=== PATIENT | female | born 1990 | race Hispanic/Latino ===

== ENCOUNTER 2018-09-30 18:00 | Inpatient (IN) | payer OTHER, SELFPAY ==
[2018-09-30 20:34] VITALS: BMI 24.1
--- NOTE | 2018-09-30 20:49 | PDOC.LDHP ---
Labor and Delivery H&P Chief complaint: contractions, scheduled induction HPI: 27yo at 39.3 by LMP c/w 15.3 wk sono here for elective IOL. complicated by IUGR. Endorses FM, denies LOF/VB/VD. Denies CTX but endorses slight pelvic pressure. No other concerns otherwise Current gestational age (weeks): 39 (39.3) Due date: 10/04/18 Dating criteria: last menstrual period, first trimester ultrasound Grav: 4 Para: 2 (1112) OB History Details: 1. 36 wks, 2. 38 wks, 3. SAB Current complications: none Abnormal US findings: Yes (IUGR) Current medications: pre-angelica vitamins, iron Previous surgical history: none Allergies/Adverse Reactions: Allergies Allergy/AdvReac Type Severity Reaction Status Date / Time No Known Allergies Allergy Verified 09/30/18 20:29 Social history: none - Physical Exam Vital signs reviewed and normal: yes General: NAD Heart: RRR Lungs: CTAB Abdomen: NTTP Extremeties: no edema FHT: category 1 - Vaginal Exam cm dilated: 3 Effacement: 50% Station: -1 - OB Labs Blood type: A RH: positive Antibody Screen: negative HIV: negative RPR: negative HEPSAg: negative 1 hour GCT: negative GBS: negative Rubella: immune - Assessment L&D Assessment: elective induction at term - Plan Plan: admit to L&D, labor augmentation if indicated -: #sIUP, term, elective IOL -FHT: Cat I, uterine irritability -SVE: 3/50/-1, Taver[place] 7 -Position: Vertex -Will start pitocin -Recheck in 2 hours -desires epidrual #elevated BPs -130s/80s, with headache -1g tylenol now -CBC/CMP urine pr/cr #IUGR -s<d in prior ultrasound -no recent ultrasound #anemia of -has been taking iron #hx of at 36 weeks -received weekly brittany (hydroxyprogesterone) during this Discussed with Dr. Shanti Patel - Attending - Attending Attestation Date/Time: 10/01/182120 I personally evaluated the patient and discussed the management with Dr. Frankel I agree with the History, Examination, Assessment and Plan documented above with any addition or exceptions noted below. Medically indicated induction of labor for IUGR. Pt having weekly testing with UA dopplers that have been reassuring. Start induction with pitocin. GBS negative. Anticipate
[2018-09-30] MEDS ORDERED: Promethazine HCl 25 MG/ML VIAL IM PRN ×2 (21:25→23:39)
[2018-09-30] MEDS ORDERED: Ondansetron PF 4 MG/2 ML Vial IVP PRN ×2 (21:25→23:39)
[2018-09-30] MEDS ORDERED: Lidocaine 1% (PF) 30 ML VIAL SC PRN (21:25)
[2018-09-30] MEDS ORDERED: NS / Oxytocin 40 units/1000ml 1,000 ML IV PRN (21:25)
[2018-09-30] MEDS ORDERED: hydrALAZINE 20 MG/ML VIAL SLOW IVP PRN (21:25)
[2018-09-30] MEDS ORDERED: NS w/ Oxytocin 10 units 500 ML IV SCH (21:30)
[2018-09-30] MEDS ORDERED: Lactated Ringer's 1,000 ML IV SCH (21:30)
[2018-09-30] MEDS ORDERED: Acetaminophen 500 MG TAB PO SCH (22:00)
[2018-09-30 22:27] LABS: Hemoglobin 11.3 g/dL (12.0-16.0); Mean Corpuscular HGB CONC 32.9 g/dL (32.0-36.0); Mean Corpuscular Volume 91.2 fL (78.0-98.0); Mean Platelet Volume 8.6 fL (7.4-10.4); Platelet Count 242 thou/uL (130-400); RBC Distribution Width 12.9 % (11.5-14.5); Red Blood Cell (RBC) Count 3.78 mill/uL (4.20-5.40); White Blood Cell (WBC) Count 10.2 thou/uL (4.8-10.8)
[2018-09-30] MEDS ORDERED: Magnesium Sulfate 20 gm/500 ml 20 GM/500 ML BAG ONE (22:58)
[2018-09-30 23:09] LABS: ALT (SGPT) 14 U/L (8-55); AST (SGOT) 16 U/L (5-34); Albumin 3.6 g/dL (3.5-5.0); Alkaline Phosphatase 177 U/L (40-150); Anion Gap 15 mmol/L (10-20); BUN (Urea Nitrogen) 12 mg/dL (7.0-18.7); Bilirubin, Total 0.3 mg/dL (0.2-1.2); Calc. Creatinine Clearance 118 mL/min (70-130); Calcium 8.9 mg/dL (7.8-10.44); Carbon Dioxide 20 mmol/L (22-29); Chloride 102 mmol/L (98-107); Estimated GFR-MDRD Greater than 90; Globulin 3.1 g/dL (2.4-3.5); Glucose 78 mg/dL (70-105); Potassium 4.3 mmol/L (3.5-5.1); Protein, Total 6.7 g/dL (6.0-8.3); Sodium 133 mmol/L (136-145)
[2018-09-30] MEDS ORDERED: Fentanyl 4 mcg/Bup 0.1% Cadd 100 ML ONE (23:13)
[2018-09-30] MEDS: Magnesium Sulfate 20 gm/500 ml 20 GM/500 ML BAG IVPB SCH (23:20)
[2018-09-30] MEDS ORDERED: Calcium Gluc 4.6 MEQ/10 ML (100 MG/ML) SLOW IVP PRN (23:22)
[2018-09-30 23:24] LABS: Syphilis Antibody Nonreactive (Nonreactive); Syphilis Antibody Index 0.06 S/CO (<1.00 Non-Reactive)
--- NOTE | 2018-09-30 23:24 | PDOC.LDPN ---
Labor & Delivery Progress Note - Subjective Subjective: comfortable, vaginal pressure - Objective Abnormal vital signs: elevated BPs, two in severe ranges General: NAD, resting SVE: 4/50/-1 Dilation: 4 Effacement: 50% Station: -1 FHT: category 1 (150/mod-marked/accels), variability present Rowley contractions every: uterine irritability Plan: continue plan of care, labor augmentation -: #sIUP, term, elective IOL -FHT: Cat I, uterine irritability -SVE: 50/-1 -Position: Vertex -pit at 2 -Recheck in 2 hours -desires epidural #preeclampsia -two severe range BPs 160s/100s, headache still present with tylenol (somewhat improved) -gave hydralazine, continue IV PRNs -discussed starting magnesium for seizure prophylaxis, explained AE, R&B, patient agrees #IUGR -s<d in prior ultrasound -no recent ultrasound #anemia of -has been taking iron #hx of at 36 weeks -received weekly brittany (hydroxyprogesterone) during this Discussed with Dr. Moser
[2018-09-30] MEDS ORDERED: Labetalol HCl 100 MG/20 ML VIAL SLOW IVP PRN (23:29)
[2018-09-30] MEDS ORDERED: Magnesium Sulfate 20 GM/WATER 500 ML BAG IVPB SCH (23:30)
[2018-09-30] MEDS ORDERED: diphenhydrAMINE 50 MG/ML VIAL IVP PRN (23:39)
[2018-09-30] MEDS ORDERED: Acetaminophen 325 MG TAB PO PRN (23:39)
[2018-09-30] MEDS ORDERED: Naloxone HCl 0.4 mg/ml Vial IVP PRN ×2 (23:39)
[2018-09-30] MEDS ORDERED: ePHEDrine/0.9% NaCl/PF SYRINGE 50 mg/10 ml SLOW IVP PRN (23:39)
[2018-09-30] MEDS ORDERED: Lactated Ringer's 500 ML IV PRN (23:39)
[2018-09-30] MEDS ORDERED: Communication Order-Pharmacy FS SCH (23:45)
[2018-09-30] MEDS ORDERED: Fentanyl 4 mcg/Bupivacaine 0.1% Cassette 100 ML EPIDURAL SCH (23:45)
[2018-10-01 00:35] LABS: HBSAg Index 0.23 S/CO (0-0.99); Hep B Surf Ag Non-Reactive S/CO (NonReactive)
--- NOTE | 2018-10-01 06:10 | PDOC.EVN ---
Event Note - Event Note Event Note: Magnesium check @ 0430 Denies VOGEL, SOB, chest pain, vision changes. Comfortable. VS: No severe range BPs, two isolated at 143mmHg and another at 145mmHg UO: >30cc/hr PE: RRR, CTAB, no edema, reflexes 2+ Fluids: LR @ 75 Magnesium: Mg at 2g/hr Continue plan of care Recheck in 4 hours
--- NOTE | 2018-10-01 06:39 | PDOC.EVN ---
Event Note - Event Note Event Note: Vaginal Delivery Dictation Guideline Delivering Physician: Lavern Vincent Attending: Dr. Moser Procedure: Spontaneous Vaginal Delivery Anesthesia: epidural EBL: 200 ml Pre-op Diagnosis: 1. Term intrauterine in labor 2. Hx of IUGR Post-op Diagnosis: 1. Term intrauterine , delivered 2. same as above Indications: A 27 y/o female presents for elective term induction Delivery Note: This is 27 yo F @ 39.4 wks who delivered a viable M infant on 10/01 at 0254. Uneventful antepartum course with rapid cervical change a vigorous M was delivered over an intact perineum in the occipitoanterior position. Anterior shoulder and then remainder of the body delivered. No nuchal cord. The head was held down and mouth and nares were bulb suctioned. Cord clamped after delayed cord clamping and cut and cord blood collected. Placenta delivered intact with a 3 vessel cord noted. Fundal massage was performed and the fundus was firm. The cervix and vagina were inspected and found to be free of lacerations. Infant went to nursery in good condition for routine care. Apgars were 9/9 at 1 & 5 minutes, respectively. Patient tolerated delivery well and will transition to LDICU to continue to receive magnesium. Addendum - Attending - Attending Attestation Date/Time: 10/01/182130 I was present for and assisted in the entire uncomplicated performed by Vivi Puckett and Jostin. I agree with above documentation.
--- NOTE | 2018-10-01 09:13 | PDOC.EVN ---
Event Note - Event Note Event Note: Magnesium check @ 0830 Denies VOGEL, SOB, chest pain, vision changes. Comfortable. VS: No severe range BPs, highest recorded BP 158/80 UO: >30cc/hr PE: RRR, CTAB, no edema, reflexes 2+ Fluids: LR @ 75 Magnesium: Mg at 2g/hr Continue plan of care Recheck in 4 hours Addendum - Attending - Attending Attestation Date/Time: 10/01/18 1370 I personally evaluated the patient and discussed the management with Dr. Montenegro. I agree with the History, Examination, Assessment and Plan documented above with any addition or exceptions noted below.
[2018-10-01 09:25] LABS: Creatinine, Urine Less than 20.00 mg/dL (47-110); Protein, Urine Random Quant Less than 10 mg/dL (1-14)
[2018-10-01] MEDS ORDERED: diphenhydrAMINE 25 MG CAP PO PRN (11:31)
[2018-10-01] MEDS ORDERED: Metoclopramide HCl 10 MG TAB PO PRN (11:31)
[2018-10-01] MEDS ORDERED: Ibuprofen 200 MG TAB PO PRN (11:31)
[2018-10-01] MEDS ORDERED: HYDROcodone/Acetaminophen 5/325 mg Tablet PO SCH (12:15)
--- NOTE | 2018-10-01 12:44 | PDOC.EVN ---
Event Note - Event Note Event Note: Magnesium check @ 1230 Reports headache and vaginal pain/soreness. denies SOB, chest pain, vision changes. Comfortable. VS: No severe range BPs, highest recorded BP 158/80 UO: >30cc/hr PE: RRR, CTAB, no edema, reflexes 2+ Fluids: LR @ 75 Magnesium: Mg at 2g/hr Continue plan of care Recheck in 4 hours
[2018-10-01] MEDS ORDERED: Ibuprofen 800 MG TAB PO PRN (13:19)
--- NOTE | 2018-10-01 15:51 | PDOC.EVN ---
Event Note - Event Note Event Note: Magnesium check @ 1700 Denies headache, SOB, chest pain, vision changes. Comfortable. VS: No severe range BPs, highest recorded BP 158/80 UO: >30cc/hr PE: RRR, CTAB, no edema, reflexes 2+ Fluids: LR @ 75 Magnesium: Mg at 2g/hr Continue plan of care Recheck in 4 hours
--- NOTE | 2018-10-01 18:28 | PDOC.EVN ---
Event Note - Event Note Event Note: Magnesium check @ 1900 Denies headache, SOB, chest pain, vision changes. Comfortable. VS: No severe range BPs, highest recorded BP 158/80 this AM UO: >30cc/hr PE: RRR, CTAB, no edema, reflexes 2+ Fluids: LR @ 75 Magnesium: Mg at 2g/hr Continue plan of care Recheck in 4 hours
[2018-10-01] MEDS: Magnesium Sulfate 20 gm/500 ml 20 GM/500 ML BAG IVPB SCH (18:56)
[2018-10-01] MEDS: Ibuprofen 800 MG TAB PO PRN (20:25)
[2018-10-01] MEDS ORDERED: Bisacodyl 10 MG SUPP PR PRN (22:40)
[2018-10-01] MEDS ORDERED: Milk Of Magnesia 30 ML UDCUP PO PRN (22:40)
[2018-10-01] MEDS ORDERED: hydrALAZINE 20 MG/ML VIAL SLOW IVP PRN (22:40)
[2018-10-01] MEDS ORDERED: Docusate Calcium (SURFAK) 240 MG CAP PO SCH (22:45)
[2018-10-02] MEDS: Ibuprofen 800 MG TAB PO PRN ×3 (05:52→21:31)
[2018-10-02] MEDS: Ferrous Sulfate 325 MG TAB PO SCH ×2 (07:55→13:46)
[2018-10-02] MEDS: Docusate Calcium (SURFAK) 240 MG CAP PO SCH ×2 (08:45→21:31)
[2018-10-02] MEDS ORDERED: Adacel (T-DAP) 0.5 ML SYRINGE IM ONE (09:00)
--- NOTE | 2018-10-02 09:38 | PDOC.PP ---
Post Progress Note Post Day #: 1 Subjective: 27 yo ->3 delivered after successful IOL 2/2 IUGR. In the induction precess pt developed severe range BPs and was started on magnesium. Since delivery PT has had good BP control. She denies headache, cp, sob, abd pain, epigastric pain and ruq pain. PO intake tolerated: yes Flatus: yes Ambulation: yes Vital Signs (12 hours) Temp Pulse Resp BP Pulse Ox 10/02/18 07:42 98.6 F 83 20 128/80 98 10/02/18 02:41 98.3 F 92 20 134/82 10/01/18 22:40 97.9 F 90 16 123/73 100 Weight Weight 58.06 kg - Physical Examination General: NAD Cardiovascular: no m/r/g, RRR Respiratory: clear to auscultation bilaterally, non-labored breathing Abdominal: + bowel sounds, no distention, appropriately TTP Neurological: no gross focal deficits Psychiatric: normal affect Result Diagrams: 09/30/18 22:11 09/30/18 22:11 Additional Labs: Post Labs Blood Type A POSITIVE 09/30/18 22:37 Hep Bs Antigen Non-Reactive S/CO (NonReactive) 09/30/18 22:11 (1) Pre-eclampsia, delivered Code(s): O14.94 - UNSPECIFIED PRE-ECLAMPSIA, COMPLICATING CHILDBIRTH Status: Acute - Assessment/Plan 1) Preeclampsia, delivered - pp day 1 - pt doing well with good bp control - will plan to keep pt overnight and continue to monitor pressures - Pain well controlled at this time Addendum - Attending - Attending Attestation Date/Time: 10/02/18 1022 I personally evaluated the patient and discussed the management with Dr. Puckett and team. I agree with the History, Examination, Assessment and Plan documented above with any addition or exceptions noted below.
[2018-10-03] MEDS: Ibuprofen 800 MG TAB PO PRN (05:47)
[2018-10-03] MEDS: Ferrous Sulfate 325 MG TAB PO SCH (07:30)
[2018-10-03] MEDS: Docusate Calcium (SURFAK) 240 MG CAP PO SCH (08:46)
--- NOTE | 2018-10-03 10:31 | PDOC.PP ---
Post Progress Note Post Day #: 2 Subjective: 27 yo ->3 pp day 2. Pt doing well w/o complaints. Pts bp stable. PO intake tolerated: yes Flatus: yes Ambulation: yes Vital Signs (12 hours) Temp Pulse Resp BP Pulse Ox 10/03/18 08:00 97.9 F 74 16 116/73 98 10/03/18 04:31 98.9 F 89 18 122/89 10/03/18 00:27 99.0 F 91 18 133/67 Weight Admit Weight 58.06 kg Weight 58.06 kg - Physical Examination General: NAD Cardiovascular: no m/r/g, RRR Respiratory: clear to auscultation bilaterally, non-labored breathing Neurological: no gross focal deficits Psychiatric: normal affect Result Diagrams: 09/30/18 22:11 09/30/18 22:11 Additional Labs: Post Labs Blood Type A POSITIVE 09/30/18 22:37 Hep Bs Antigen Non-Reactive S/CO (NonReactive) 09/30/18 22:11 (1) Pre-eclampsia, delivered Code(s): O14.94 - UNSPECIFIED PRE-ECLAMPSIA, COMPLICATING CHILDBIRTH Status: Acute - Assessment/Plan 1) Preeclampsia, delivered - pp day 2 BP has been stable - ok for dc to home with one week BP f/u @ [facility] Addendum - Attending - Attending Attestation Date/Time: 10/03/18 1220 I personally evaluated the patient and discussed the management with Dr. Puckett and team. I agree with the History, Examination, Assessment and Plan documented above with any addition or exceptions noted below.
[2018-10-03 12:43] VITALS: BP 131/78; TEMP 98.1
== END 2018-10-03 13:45 | disposition home or self-care (01) | DRG 807 ==
LOC: L&D 19:37 → 3SW 10-02 02:46
PROVIDERS: ADMIT Family Medicine; ATTEND Family Medicine
PROC: 10E0XZZ Delivery of Products of Conception, External Approach (ICD-10-PCS; principal; 2018-10-01)
PROC: 3E033VJ Introduction of Other Hormone into Peripheral Vein, Percutaneous Approach (ICD-10-PCS; 2018-10-01)
DX: O36.5930 Maternal care for other known or suspected poor fetal growth, third trimester, not applicable or unspecified (principal); Z37.0 Single live birth; O99.02 Anemia complicating childbirth; D64.9 Anemia, unspecified; O14.94 Unspecified pre-eclampsia, complicating childbirth; Z3A.39 39 weeks gestation of pregnancy
CPT/HCPCS: 36415; 51702; 80053; 81003; 82570; 84156; 85027; 86780; 86850; 86900; 86901; 87340; J0360; J2405; J2590; J3475

== ENCOUNTER 2023-05-02 20:37 | Emergency (ER) | payer MEDICAID, SELFPAY ==
[2023-05-02] MEDS ORDERED: Acetaminophen 500 MG TAB ONE (21:34)
[2023-05-02] MEDS ORDERED: LORazepam 2 MG/ML SYR.(CARPUJECT) ONE (21:35)
[2023-05-02 21:58] LABS: #Monocytes 1.2 thou/uL (0.11-0.59); #Neutrophils 6.7 thou/uL (1.40-6.50); %Basophils 0.3 % (0.0-1.0); %Monocytes 13.6 % (0.0-10.0); %Neutrophils 73.9 % (42.0-75.0); Hematocrit 36.8 % (36.0-47.0); Hemoglobin 12.4 g/dL (12.0-16.0); Mean Corpuscular HGB CONC 33.7 g/dL (32.0-36.0); Mean Corpuscular Hemoglobin 30.3 pg (27.0-31.0); Mean Platelet Volume 9.8 fL (7.4-10.4); Platelet Count 243 10x3/uL (130-400); RBC Distribution Width 12.8 % (11.5-14.5); Red Blood Cell (RBC) Count 4.09 mill/uL (4.20-5.40); White Blood Cell (WBC) Count 9.1 10x3/uL (4.8-10.8)
[2023-05-02 22:20] LABS: ALT (SGPT) 14 U/L (8-55); AST (SGOT) 20 U/L (5-34); Albumin 4.7 g/dL (3.5-5.0); Alkaline Phosphatase 63 U/L (40-110); Anion Gap 16 mmol/L (10-20); BUN (Urea Nitrogen) 14 mg/dL (7.0-18.7); Bilirubin, Total 1.2 mg/dL (0.2-1.2); Calc. Creatinine Clearance 0 mL/min (70-130); Calcium 9.8 mg/dL (7.8-10.44); Carbon Dioxide 20 mmol/L (22-29); Chloride 104 mmol/L (98-107); Estimated GFR 109; Globulin 3.8 g/dL (2.4-3.5); Glucose 78 mg/dL (70-105); Lipase 40 U/L (8-78); Potassium 3.6 mmol/L (3.5-5.1); Protein, Total 8.5 g/dL (6.0-8.3); Sodium 136 mmol/L (136-145)
[2023-05-02 22:24] LABS: BHCG - Serum Negative (NEGATIVE); Pregs Control Background? CLEAR/WHITE (CLR/WHITE); Pregs Control Bar Appear? YES (CONTROL BAR)
[2023-05-02 22:34] LABS: SARS-CoV-2 NAA Rapid Test Not Detected (NotDetected)
== END 2023-05-03 00:35 | disposition home or self-care (01) ==
LOC: ERS 20:37
DX: J11.1 Influenza due to unidentified influenza virus with other respiratory manifestations (principal)
CPT/HCPCS: 36415; 80053; 83605; 83690; 84703; 85025; 96361; 96374; J2060